=== PATIENT | male | born 1960 | race Caucasian/White ===

== ENCOUNTER 2016-04-01 14:44 | Outpatient (CLI) | payer MEDICARE, MEDICAID ==
[2016-04-01 15:03] LABS: #Basophils 0.1 thou/uL (0.0-0.2); #Eosinphils 0.2 thou/uL (0.0-0.7); #Lymphocytes 1.8 thou/uL (1.20-3.40); #Monocytes 0.4 thou/uL (0.11-0.59); %Basophils 0.6 % (0.0-1.0); %Eosinophils 2.7 % (0.0-10.0); %Lymphocytes 21.5 % (21.0-51.0); %Monocytes 4.7 % (0.0-10.0); %Neutrophils 70.5 % (42.0-75.0); Hemoglobin 10.4 g/dL (14.0-18.0); Mean Corpuscular HGB CONC 35.1 g/dL (32.0-36.0); Mean Corpuscular Hemoglobin 28.7 pg (27.0-31.0); Mean Corpuscular Volume 81.7 fl (80.0-94.0); Mean Platelet Volume 6.9 fL (7.4-10.4); Platelet Count 346 thou/uL (130-400); Red Blood Cell (RBC) Count 3.63 mill/uL (4.70-6.10); White Blood Cell (WBC) Count 8.5 thou/uL (4.8-10.8)
[2016-04-01 15:12] LABS: Hemoglobin A1c 8.5 % (4.0-6.0)
[2016-04-01 15:13] LABS: ALT (SGPT) 12 U/L (0-55); AST (SGOT) 13 U/L (5-34); Albumin 3.4 g/dL (3.5-5.0); Alkaline Phosphatase 65 U/L (40-150); Anion Gap 17 mmol/L (10-20); BUN (Urea Nitrogen) 39 mg/dL (8.4-25.7); Bilirubin, Total 0.3 mg/dL (0.2-1.2); Calc. Creatinine Clearance 0 mL/min (70-130); Calcium 8.5 mg/dL (7.8-10.44); Carbon Dioxide 22 mmol/L (22-29); Chloride 100 mmol/L (98-107); Estimated GFR-MDRD 35; Glucose 277 mg/dL (70-105); Potassium 4.8 mmol/L (3.5-5.1); Protein, Total 6.4 g/dL (6.0-8.3); Sodium 134 mmol/L (136-145)
== END 2016-04-01 14:45 | disposition home or self-care (01) ==
LOC: MADLABBHPM 14:44
PROVIDERS: ATTEND Family Medicine
DX: D63.8 Anemia in other chronic diseases classified elsewhere (principal); E11.9 Type 2 diabetes mellitus without complications
CPT/HCPCS: 36415; 80053; 82728; 83036; 83540; 84443; 85025

== ENCOUNTER 2016-07-29 14:40 | Outpatient (CLI) | payer MEDICARE, MEDICAID | END 2016-07-29 14:41 | disposition home or self-care (01) | LOC: MADLABBHPM 14:40 | PROVIDERS: ATTEND Family Medicine | DX: E11.42 Type 2 diabetes mellitus with diabetic polyneuropathy (principal) | CPT/HCPCS: 36415; 83036 ==

== ENCOUNTER 2016-08-05 14:04 | Outpatient (CLI) | payer MEDICARE, MEDICAID ==
[2016-08-05 14:22] LABS: #Basophils 0.1 thou/uL (0.0-0.2); #Eosinphils 0.2 thou/uL (0.0-0.7); #Lymphocytes 1.7 thou/uL (1.20-3.40); #Monocytes 0.4 thou/uL (0.11-0.59); %Basophils 0.8 % (0.0-1.0); %Lymphocytes 23.2 % (21.0-51.0); %Monocytes 5.6 % (0.0-10.0); %Neutrophils 67.4 % (42.0-75.0); Hemoglobin 11.2 g/dL (14.0-18.0); Mean Corpuscular Volume 82.3 fl (80.0-94.0); Mean Platelet Volume 8.1 fL (7.4-10.4); Platelet Count 239 thou/uL (130-400); White Blood Cell (WBC) Count 7.4 thou/uL (4.8-10.8)
[2016-08-05 14:36] LABS: ALT (SGPT) 13 U/L (8-55); AST (SGOT) 15 U/L (5-34); Albumin 3.4 g/dL (3.5-5.0); Alkaline Phosphatase 70 U/L (40-150); Anion Gap 12 mmol/L (10-20); BUN (Urea Nitrogen) 34 mg/dL (8.4-25.7); Bilirubin, Total 0.3 mg/dL (0.2-1.2); Calc. Creatinine Clearance 0 mL/min (70-130); Calcium 8.2 mg/dL (7.8-10.44); Carbon Dioxide 20 mmol/L (22-29); Cardiac Risk 9.8 (Less than 4.5); Chloride 108 mmol/L (98-107); Cholesterol 361 mg/dl (< 200 Desired); Estimated GFR-MDRD 23; Globulin 3.1 g/dL (2.4-3.5); Glucose 215 mg/dL (70-105); HDL Cholesterol 37 mg/dL (>60 Neg Risk); Potassium 4.8 mmol/L (3.5-5.1); Protein, Total 6.5 g/dL (6.0-8.3); Sodium 135 mmol/L (136-145); Triglycerides 1490 mg/dL (Less than 150)
== END 2016-08-05 14:05 | disposition home or self-care (01) ==
LOC: MADLABBHPM 14:04
PROVIDERS: ATTEND Family Medicine
DX: D63.8 Anemia in other chronic diseases classified elsewhere (principal); E11.29 Type 2 diabetes mellitus with other diabetic kidney complication; E03.9 Hypothyroidism, unspecified
CPT/HCPCS: 36415; 80053; 80061; 82728; 83540; 84443; 85025

== ENCOUNTER 2016-10-07 09:52 | Outpatient (CLI) | payer MEDICARE, MEDICAID ==
[2016-10-07 10:49] LABS: #Basophils 0.1 thou/uL (0.0-0.2); #Eosinphils 0.2 thou/uL (0.0-0.7); #Lymphocytes 1.8 thou/uL (1.20-3.40); #Monocytes 0.4 thou/uL (0.11-0.59); #Neutrophils 3.7 thou/uL (1.40-6.50); %Basophils 0.9 % (0.0-1.0); %Eosinophils 3.4 % (0.0-10.0); %Lymphocytes 29.8 % (21.0-51.0); %Monocytes 5.7 % (0.0-10.0); %Neutrophils 60.3 % (42.0-75.0); Hemoglobin 11.6 g/dL (14.0-18.0); Mean Corpuscular HGB CONC 33.4 g/dL (32.0-36.0); Mean Corpuscular Hemoglobin 27.9 pg (27.0-31.0); Mean Corpuscular Volume 83.6 fl (80.0-94.0); Mean Platelet Volume 7.8 fL (7.4-10.4); Platelet Count 243 thou/uL (130-400); RBC Distribution Width 13.8 % (11.5-14.5); Red Blood Cell (RBC) Count 4.17 mill/uL (4.70-6.10); White Blood Cell (WBC) Count 6.1 thou/uL (4.8-10.8)
[2016-10-07 10:55] LABS: Hemoglobin A1c 7.9 % (4.0-6.0)
[2016-10-07 10:57] LABS: ALT (SGPT) 10 U/L (8-55); AST (SGOT) 12 U/L (5-34); Albumin 3.5 g/dL (3.5-5.0); Alkaline Phosphatase 66 U/L (40-150); Anion Gap 15 mmol/L (10-20); BUN (Urea Nitrogen) 35 mg/dL (8.4-25.7); Bilirubin, Total 0.4 mg/dL (0.2-1.2); Calc. Creatinine Clearance 0 mL/min (70-130); Calcium 9.4 mg/dL (7.8-10.44); Carbon Dioxide 20 mmol/L (22-29); Cardiac Risk 10.1 (Less than 4.5); Chloride 105 mmol/L (98-107); Cholesterol 324 mg/dl (< 200 Desired); Estimated GFR-MDRD 27; Globulin 3.8 g/dL (2.4-3.5); Glucose 155 mg/dL (70-105); HDL Cholesterol 32 mg/dL (>60 Neg Risk); Potassium 4.4 mmol/L (3.5-5.1); Protein, Total 7.3 g/dL (6.0-8.3); Sodium 136 mmol/L (136-145); Triglycerides 1399 mg/dL (Less than 150)
[2016-10-07 11:00] LABS: Thyroid Stimulating Hormone 5.4806 uIU/mL (0.35-4.94)
[2016-10-07 18:06] LABS: Iron 62 ug/dL (65-175)
[2016-10-07 18:14] LABS: Ferritin 69.58 ng/mL (22-322)
== END 2016-10-07 09:53 | disposition home or self-care (01) ==
LOC: MADLABBHPM 09:52
PROVIDERS: ATTEND Family Medicine
DX: N18.9 Chronic kidney disease, unspecified (principal); D63.8 Anemia in other chronic diseases classified elsewhere; E11.29 Type 2 diabetes mellitus with other diabetic kidney complication; E03.9 Hypothyroidism, unspecified
CPT/HCPCS: 36415; 80053; 80061; 82728; 83036; 83540; 84443; 85025

== ENCOUNTER 2017-09-17 09:31 | Outpatient (CLI) | payer MEDICARE, MEDICAID ==
--- NOTE | 2017-09-17 10:27 | RAD ---
TWO VIEW CHEST: COMPARISON: 06/11/11. INDICATION: Fever and cough. FINDINGS: Lungs are clear. No free air beneath the hemidiaphragms. Cardiac silhouette is normal in size. The re is osseous degenerative change. Mild vascular calcification is seen. IMPRESSION: No focal consolidation. POS: [facility]
== END 2017-09-17 09:32 | disposition home or self-care (01) ==
LOC: MADRAD 09:31
PROVIDERS: ATTEND Nurse Practitioner Family
DX: R05 Cough (principal); R50.9 Fever, unspecified
CPT/HCPCS: 71046

== ENCOUNTER 2018-03-08 13:10 | Emergency (ER) | payer MEDICARE, MEDICAID ==
[2018-03-08 13:54] LABS: #Eosinphils 0.4 thou/uL (0.0-0.7); #Lymphocytes 1.2 thou/uL (1.20-3.40); #Monocytes 0.5 thou/uL (0.11-0.59); #Neutrophils 5.1 thou/uL (1.40-6.50); %Basophils 0.6 % (0.0-1.0); %Eosinophils 5.3 % (0.0-10.0); %Monocytes 7.4 % (0.0-10.0); %Neutrophils 69.8 % (42.0-75.0); Hemoglobin 10.6 g/dL (14.0-18.0); Mean Corpuscular HGB CONC 33.9 g/dL (32.0-36.0); Mean Corpuscular Hemoglobin 30.5 pg (27.0-31.0); Mean Corpuscular Volume 89.8 fL (78.0-98.0); Mean Platelet Volume 6.7 fL (7.4-10.4); Platelet Count 288 thou/uL (130-400); Red Blood Cell (RBC) Count 3.48 mill/uL (4.70-6.10); White Blood Cell (WBC) Count 7.3 thou/uL (4.8-10.8)
[2018-03-08 14:01] LABS: ALT (SGPT) 9 U/L (8-55); AST (SGOT) 13 U/L (5-34); Albumin 3.9 g/dL (3.5-5.0); Alkaline Phosphatase 46 U/L (40-150); Anion Gap 21 mmol/L (10-20); BUN (Urea Nitrogen) 44 mg/dL (8.4-25.7); Bilirubin, Total 0.7 mg/dL (0.2-1.2); Calc. Creatinine Clearance 0 mL/min (70-130); Calcium 9.2 mg/dL (7.8-10.44); Carbon Dioxide 26 mmol/L (22-29); Chloride 98 mmol/L (98-107); Estimated GFR-MDRD 7; Globulin 3.5 g/dL (2.4-3.5); Glucose 185 mg/dL (70-105); Magnesium 2.4 mg/dL (1.6-2.6); Potassium 4.4 mmol/L (3.5-5.1); Protein, Total 7.4 g/dL (6.0-8.3); Sodium 141 mmol/L (136-145)
[2018-03-08 14:26] LABS: CKMB 1.1 ng/mL (0-6.6)
--- NOTE | 2018-03-08 14:26 | RAD ---
TWO VIEWS OF THE CHEST: DATE: 03/08/2018. COMPARISON: 09/17/2017. HISTORY: Dyspnea. FINDINGS: Thee is a right-sided dialysis catheter, distal tip overlying the region of the SVC. No pneumothorax , lobar consolidation, or alveolar edema. Small new bilateral pleural effusions are seen. IMPRESSION: New small bilateral pleural effusions. Dialysis catheter in place. POS: [facility]
[2018-03-08] MEDS ORDERED: Nitroglycerin 2% Ointment 1 INCH/1 GM Packet ONE (14:44)
== END 2018-03-08 15:42 | disposition short-term general hospital (02) ==
LOC: MADERS 13:10
DX: E87.70 Fluid overload, unspecified (principal); R79.89 Other specified abnormal findings of blood chemistry; R06.02 Shortness of breath; D64.9 Anemia, unspecified; E03.9 Hypothyroidism, unspecified; E78.5 Hyperlipidemia, unspecified; E11.9 Type 2 diabetes mellitus without complications; I10 Essential (primary) hypertension; Z79.899 Other long term (current) drug therapy; Z79.4 Long term (current) use of insulin
CPT/HCPCS: 71046; 80053; 82553; 83735; 83880; 84484; 85025; 93005

== ENCOUNTER 2018-03-17 09:42 | Outpatient (CLI) | payer MEDICARE, MEDICAID ==
--- NOTE | 2018-03-17 11:29 | RAD ---
RADIOGRAPH CHEST 2 VIEWS: Date: 03/17/2018 Time: 9:50 a.m. HISTORY: A 57-year-old male with cough. COMPARISON: 03/08/2018 FINDINGS: Again noted is the double-lumen right IJ dialysis catheter, with distal tips in the SVC. No cardiome dane. Bilateral small pleural effusions, similar in size to previous study. Prominent interstitial markings, diffusely. No consolidation or pneumothorax. No major interval change. IMPRESSION: 1. Small bilateral pleural effusions. 2. Right internal jugular dialysis catheter. 3. No evidence of pneumonia. PETER [] POS: [facility]
== END 2018-03-17 09:43 | disposition home or self-care (01) ==
LOC: MADRAD 09:42
PROVIDERS: ATTEND Nurse Practitioner Family
DX: N18.6 End stage renal disease (principal); R05 Cough; E87.0 Hyperosmolality and hypernatremia
CPT/HCPCS: 71046

== ENCOUNTER 2018-03-22 11:52 | Emergency (ER) | payer MEDICARE, OTHER ==
[2018-03-22 12:59] LABS: #Basophils 0.1 thou/uL (0.0-0.2); #Eosinphils 0.1 thou/uL (0.0-0.7); #Lymphocytes 1.1 thou/uL (1.20-3.40); #Monocytes 0.5 thou/uL (0.11-0.59); #Neutrophils 4.8 thou/uL (1.40-6.50); %Basophils 0.8 % (0.0-1.0); %Eosinophils 2.2 % (0.0-10.0); %Lymphocytes 16.6 % (21.0-51.0); %Neutrophils 73.4 % (42.0-75.0); Hemoglobin 9.1 g/dL (14.0-18.0); Mean Corpuscular HGB CONC 33.2 g/dL (32.0-36.0); Mean Corpuscular Hemoglobin 29.9 pg (27.0-31.0); Platelet Count 270 thou/uL (130-400); RBC Distribution Width 14.1 % (11.5-14.5); Red Blood Cell (RBC) Count 3.03 mill/uL (4.70-6.10); White Blood Cell (WBC) Count 6.6 thou/uL (4.8-10.8)
--- NOTE | 2018-03-22 13:02 | RAD ---
PORTABLE CHEST 1 VIEW: DATE: 03/22/2018. TIME: 12:38 p.m. HISTORY: Cough. Altered mental status. Weakness. FINDINGS/IMPRESSION: Comparison is made to the exam of 03/17/2018. Right-sided Port-A-Cath remains in place. The heart size is borderline. There is mild prominence if the pulmonary vascularity. No lobar consolidation, pneumothoraces, or large effusions are seen. Sm all pleural effusions may be present. POS: [facility]
--- NOTE | 2018-03-22 13:10 | CT ---
CT BRAIN WITHOUT CONTRAST: HISTORY: Altered mental status. TIA. FINDINGS: Comparison is made with the exam of 08/28/2017. Changes of chronic small-vessel ischemic disease and old lacunar infarcts are again noted. The ventr icular size is stable and the basilar cisterns patent. No evidence of acute infarct, hemorrhage, mid line shift, or abnormal extraaxial fluid collections are seen. The bony calvarium is intact. There is mucosal disease in the paranasal sinuses. IMPRESSION: No CT evidence of acute intracranial process. POS: [facility]
[2018-03-22 13:11] LABS: ALT (SGPT) Less than 7 U/L (8-55); AST (SGOT) 13 U/L (5-34); Albumin 3.9 g/dL (3.5-5.0); Alkaline Phosphatase 51 U/L (40-150); Anion Gap 22 mmol/L (10-20); BUN (Urea Nitrogen) 48 mg/dL (8.4-25.7); Bilirubin, Total 0.8 mg/dL (0.2-1.2); Calc. Creatinine Clearance 0 mL/min (70-130); Calcium 8.6 mg/dL (7.8-10.44); Carbon Dioxide 25 mmol/L (22-29); Chloride 97 mmol/L (98-107); Estimated GFR-MDRD 9; Globulin 3.3 g/dL (2.4-3.5); Glucose 100 mg/dL (70-105); Potassium 4.6 mmol/L (3.5-5.1); Protein, Total 7.2 g/dL (6.0-8.3); Sodium 139 mmol/L (136-145)
[2018-03-22] MEDS ORDERED: Sodium Chloride 0.9% 1,000 ML ONE (13:21)
[2018-03-22 13:54] LABS: CKMB 1.4 ng/mL (0-6.6)
== END 2018-03-22 14:46 | disposition home or self-care (01) ==
LOC: MADERS 11:52
DX: R00.1 Bradycardia, unspecified (principal); T46.1X5A Adverse effect of calcium-channel blockers, initial encounter; D64.9 Anemia, unspecified; E11.9 Type 2 diabetes mellitus without complications; I10 Essential (primary) hypertension; Z79.899 Other long term (current) drug therapy; Z79.891 Long term (current) use of opiate analgesic
CPT/HCPCS: 36416; 70450; 71045; 80053; 82553; 83735; 83880; 84443; 84484; 85025; 93005; J7050

== ENCOUNTER 2018-04-19 20:20 | Emergency (ER) | payer MEDICARE, OTHER ==
[2018-04-19] MEDS ORDERED: cloNIDine 0.1 MG TAB ONE (20:45)
--- NOTE | 2018-04-19 21:15 | RAD ---
CHEST ONE VIEW: History: Cough, shortness of breath. Comparison: 04-11-18 FINDINGS: There is increased interstitial edema. Small effusions. Heart size is enlarged. IMPRESSION: Findings suggesting volume overload. POS: [facility]
[2018-04-19] MEDS ORDERED: HYDROcodone/Acetaminophen 5/325 mg Tablet ONE (21:24)
[2018-04-19] MEDS ORDERED: Benzonatate 100 MG CAP ONE (21:24)
== END 2018-04-19 21:40 | disposition home or self-care (01) ==
LOC: MADERS 20:20
DX: R06.02 Shortness of breath (principal); E03.9 Hypothyroidism, unspecified; E78.5 Hyperlipidemia, unspecified; E11.9 Type 2 diabetes mellitus without complications; I10 Essential (primary) hypertension; D64.9 Anemia, unspecified; Z79.891 Long term (current) use of opiate analgesic; Z79.899 Other long term (current) drug therapy; Z79.4 Long term (current) use of insulin
CPT/HCPCS: 71045

== ENCOUNTER 2018-04-24 09:51 | Emergency (ER) | payer MEDICARE, MEDICAID ==
[2018-04-24] MEDS ORDERED: Ondansetron ODT 4 MG TAB ONE (10:11)
== END 2018-04-24 11:13 | disposition home or self-care (01) ==
LOC: MADERS 09:51
DX: K52.9 Noninfective gastroenteritis and colitis, unspecified (principal); D64.9 Anemia, unspecified; E03.9 Hypothyroidism, unspecified; E78.5 Hyperlipidemia, unspecified; E11.9 Type 2 diabetes mellitus without complications; I10 Essential (primary) hypertension; Z79.899 Other long term (current) drug therapy
CPT/HCPCS: 99283; Q0162